=== PATIENT | female | born 1955 | race Caucasian/White ===

== ENCOUNTER 2017-08-19 23:45 | Observation (INO) | payer BC ==
[2017-08-20 00:30] LABS: Hematocrit 37 % (35-47); Hemoglobin 12.2 g/dl (12.0-16.0); Mean Corpuscular HGB Conc 33 g/dl (31-36); Mean Corpuscular Hemoglobin 30 pg (27-31); Mean Corpuscular Volume 91 fL (80-97); Mean Platelet Volume 8 um3 (7.4-10.4); Red Cell Distribution Width 16 % (10.5-15); White Blood Count 7.6 10^3/ul (3.5-10.8)
[2017-08-20 00:46] LABS: Albumin 3.9 g/dL (3.2-5.2); BUN/Creatinine Ratio 12.8 (8-20); Calcium 7.9 mg/dL (8.6-10.3); EGFR African American 95.9 (>60); EGFR Non-African American 74.6 (>60); Globulin 2.1 g/dL (2-4); Total Bilirubin 0.4 mg/dL (0.2-1.0)
[2017-08-20 00:48] LABS: Troponin I 0.01 ng/mL (<0.04)
[2017-08-20 01:24] LABS: Potassium 3.2 mmol/L (3.5-5.0)
--- NOTE | 2017-08-20 02:05 | ED ---
César Pérez Rebecca, scribed for Sravanthi Bowen MD on 08/20/17 at 0014 . HPI Chest Pain - HPI Summary HPI Summary: Pt is a 61 y/o F BIBA who presents to ED c/o CP. Pain began tonight at approximately 2000 while watching tv. Pain is characterized as burning and heaviness, located diffusely throughout the chest with radiation to the back. Pain is not present currently, she was given NTG and morphine [employer] with the morphine relieving pain. Additionally c/o nausea, fatigue and SOB. Denies diaphoresis though EMS report she was diaphoretic. No prior similar episodes. Reports 2 glasses of wine tonight. PMHx asthma and IBS. Last stress test was done 3-5 years ago. - History of Current Complaint Chief Complaint: EDChestPainROMI Time Seen by Provider: 08/19/17 23:51 Hx Obtained From: Patient Onset/Duration: Resolved Time of Onset: 20:00 Initial Severity: Moderate - 4/10 Pain Intensity: 0 Pain Scale Used: 0-10 Numeric Chest Pain Location: Diffuse Chest Pain Radiates: Yes Chest Pain Radiates To:: Back Character: Burning, Heaviness Aggravating Factor(s): Nothing Alleviating Factor(s): Medication Associated Signs and Symptoms: Positive: Nausea - Allergy/Home Medications Allergies/Adverse Reactions: Allergies Allergy/AdvReac Type Severity Reaction Status Date / Time No Known Allergies Allergy Verified 06/10/17 11:19 PMH/Surg Hx/FS Hx/Imm Hx Cardiovascular History: Reports: Hx Hypertension Respiratory History: Reports: Hx Asthma GI History: Reports: Hx Irritable Bowel Musculoskeletal History: Reports: Hx Back Problems Neurological History: Reports: Other Neuro Impairments/Disorders - PAIN CLINIC PT Psychiatric History: Reports: Hx Anxiety, Hx Depression - Surgical History Surgery Procedure, Year, and Place: hysterectomy 1985 [place]. back surgery x3 2006,2009,2013 [place] Infectious Disease History: No Infectious Disease History: Denies: Traveled Outside the [place] in Last 30 Days - Family History Known Family History: Positive: Cardiac Disease - Social History Alcohol Use: Weekly Alcohol Amount: 3-5 drinks/week Substance Use Type: Reports: None Smoking Status (MU): Never Smoked Tobacco Have You Smoked in the Last Year: No Review of Systems Positive: Fatigue, Skin Diaphoresis - Denies though was diaphoretic upon EMS arrival Positive: Chest Pain Positive: Shortness Of Breath Positive: Nausea All Other Systems Reviewed And Are Negative: Yes Physical Exam - Summary Physical Exam Summary: VITAL SIGNS: Reviewed. GENERAL: ~Patient is a well-developed and nourished female who is lying comfortable in the stretcher. Patient is not in any acute respiratory distress. HEAD AND FACE: No signs of trauma. No ecchymosis, hematomas or skull depressions. No sinus tenderness. EYES: PERRLA, EOMI x 2, No injected conjunctiva, no nystagmus. EARS: Hearing grossly intact. Ear canals and tympanic membranes are within normal limits. MOUTH: Oropharynx within normal limits. NECK: Supple, trachea is midline, no adenopathy, no JVD, no carotid bruit, no c- spine tenderness, neck with full ROM. CHEST: Symmetric, no tenderness at palpation LUNGS: Clear to auscultation bilaterally. No wheezing or crackles. CVS: Regular rate and rhythm, S1 and S2 present, no murmurs or gallops appreciated. ABDOMEN: Soft, non-tender. No signs of distention. No rebound no guarding, and no masses palpated. Bowel sounds are normal. EXTREMITIES: FROM in all major joints, no edema, no cyanosis or clubbing. NEURO: Alert and oriented x 3. No acute neurological deficits. Speech is normal and follows commands. SKIN: Dry and warm Triage Information Reviewed: Yes Vital Signs On Initial Exam: Initial Vitals Temp Pulse Resp BP Pulse Ox 97.5 F 84 18 113/59 99 08/19/17 23:50 08/19/17 23:50 08/19/17 23:50 08/19/17 23:50 08/19/17 23:50 Vital Signs Reviewed: Yes Diagnostics - Vital Signs Vital Signs Temp Pulse Resp BP Pulse Ox 08/19/17 23:50 97.5 F 84 18 113/59 99 - Laboratory Result Diagrams: 08/20/17 00:18 08/20/17 00:18 Lab Statement: Any lab studies that have been ordered have been reviewed, and results considered in the medical decision making process. - Radiology CXR Xray Interpretation: No Acute Changes Radiology Interpretation Completed By: ED Physician - EKG 2355 Cardiac Rate: NL EKG Rhythm: Sinus Rhythm EKG Interpretation: 76 bpm, normal axis, normal interval, no acute ischemic changes Re-Evaluation - Re-Evaluation First Eval Re-Evaluation Time: 01:58 Comment: Pain free currently, but explained and discussed admission. Chest Pain Course/Dx - Course Assessment/Plan: Pt is a 61 y/o F BIBA who presents to ED c/o diffuse CP since 1999, characterized as burning and heaviness, with radiation to the back. Pain is not present currently, she was given NTG and morphine [employer] with the morphine relieving pain. Additionally c/o nausea, fatigue and SOB. Denies diaphoresis though EMS report she was diaphoretic. No prior similar episodes. PMHx asthma and IBS. Last stress test was 3-5 years ago. CXR and EKG reveal no acute findings. Discussed care of pt with Dr. Berumen who accepts pt for admission. Pt will be admitted with Dx of CP. She understands and agrees. - Diagnoses Provider Diagnoses: Chest pain - Provider Notifications Discussed Care Of Patient With: Dara Berumen Time Discussed With Above Provider: 02:02 Instructed by Provider To: Other - Accepts pt for admission. Discharge - Discharge Plan Condition: Stable Disposition: ADMITTED TO [facility] Referrals: Fernandez AGUILERA,Peña Olivares [Primary Care Provider] - The documentation as recorded by the César castorena Rebecca accurately reflects the service I personally performed and the decisions made by me, Sravanthi Bowen MD.
[2017-08-20] MEDS ORDERED: HYDROcodone/ACETAMIN 5-325 MG* 1 TAB PO PRN (03:14)
[2017-08-20] MEDS ORDERED: traZODone TAB* 100 MG PO PRN (03:14)
[2017-08-20] MEDS ORDERED: Potassium Chlor TAB* 20 MEQ TAB.ER PO ONE (03:15)
--- NOTE | 2017-08-20 04:41 | HP ---
CC: Peña Presley MD * HISTORY AND PHYSICAL: DATE OF ADMISSION: 08/20/17 PRIMARY CARE PROVIDER: Peña Presley MD CHIEF COMPLAINT: Chest pain. HISTORY OF PRESENT ILLNESS: Ms. Corral is a 61-year-old female with a history of hypertension, asthma, chronic pain, and depression who presented to the emergency room with complaints of chest pain. The patient states over the last few days, the patient has had on and off chest pain. Those episodes last for 10 to 15 minutes at a time. She states that they would come no matter what she was doing. It was not always associated with activity. Today, however, she developed chest pain starting at approximately 1800 in the center of her chest that radiated out to both sides under her breasts. She states that she had some associated nausea. The pain continued and therefore she contacted EMS. When EMS arrived, the patient was found to be diaphoretic. The patient states that the pain lasted until she received morphine. The patient does states that she had stress test approximately 3 years ago at [facility] when she was being worked up for fatigue. The patient has never had any chest pain like this prior. PAST MEDICAL HISTORY: 1. Asthma. 2. Depression. 3. Chronic pain. 4. Hypertension. 5. IBS. PAST SURGICAL HISTORY: 1. Sinus surgery. 2. Hysterectomy. 3. Three back surgeries. MEDICATIONS: 1. Atenolol at unknown dose. 2. Wellbutrin 150 mg p.o. daily. 3. [place] 5/325 mg. 4. Trazodone 150 mg p.o. q.h.s. p.r.n. insomnia. ALLERGIES: No known drug allergies. FAMILY HISTORY: Mom of breast cancer. Dad of coronary artery disease and CVA. SOCIAL HISTORY: The patient is a nonsmoker. She admits drinking at most 1 to 2 alcoholic beverages per day. She is a retired RN. She is . She has 3 children. She indicates that her , Domenico, would be her healthcare proxy. REVIEW OF SYSTEMS: Complete 11-system review of systems is obtained. Pertinent positives and negatives are as per HPI. In addition, the patient states that she has a slight cough. She states that she was diagnosed with bronchitis previously and the cough had been improving, but now is worsening again. Additionally, she complains of diarrhea this evening, but she states that she will get that with her IBS. PHYSICAL EXAMINATION GENERAL: The patient is a well developed, middle-aged female, sleeping in the stretcher, easily awakened to voice, in no acute distress. VITAL SIGNS: Blood pressure 102/59, pulse 75, respirations 16, temperature 97.5 , O2 sat 96% on room air. HEENT: Pupils are equal. They are round. Extraocular muscles are intact. Oropharynx is clear. Oral mucosa is moist. There is no submandibular, cervical , or supraclavicular adenopathy. Thyroid is not enlarged. No thyroid nodules are noted. PULMONARY: Lungs are clear to auscultation bilaterally. CARDIAC: Normal S1, S2. Regular rate and rhythm. I do not appreciate any murmurs. There is no lower extremity edema. ABDOMEN: Bowel sounds are present. Abdomen is soft, nontender, and nondistended. MUSCULOSKELETAL: There is no cyanosis or clubbing of the digits. There is full active range of motion of all 4 extremities. SKIN: Warm and dry. There are no rashes. NEUROLOGIC: Cranial nerves II through XII are grossly intact. Sensation is intact to light touch throughout. Strength is 5/5 and symmetrical in both upper and lower extremities bilaterally. PSYCH: The patient is alert. She is oriented to x3. Affect appears appropriate. LABORATORY DATA: WBC 7.6, hemoglobin 12.2, hematocrit 37, and platelets 245. INR is 0.92. Sodium 140, potassium 3.2, chloride 110, CO2 19, BUN 10, creatinine 0.78, glucose 93, calcium 7.9, bilirubin 0.4, AST 137, ALT 38, alk phos 75, troponin 0.01, albumin 3.9. EKG reveals normal sinus rhythm without any acute ST-T wave abnormalities. Chest x-ray to my interpretation, I questioned a small right basilar infiltrate. We will await formal read by the radiologist. ASSESSMENT AND PLAN: Ms. Corral is a 61-year-old female with a history of hypertension who presents to the emergency room with complaints of chest pain with associated nausea and possible diaphoresis. 1. Chest pain. The patient will be admitted under observation status to rule out an myocardial infarction. The patient will have another troponin obtained now and again at 0600. If she rules out for myocardial infarction, the patient will undergo exercise nuclear stress test. The patient normally takes atenolol ; however, she does not know what her dose is. This will need to be held prior to the stress test regardless. 2. Depression. Continue Wellbutrin 150 mg p.o. daily and trazodone as needed for sleep. 3. Chronic pain. Continue [place] 5/325 one tab every 6 hours as needed for pain. 4. Hypertension. The patient's blood pressure is under excellent control at this point. As above, her atenolol is going to be held. 5. Asthma. There are no symptoms at this time. 6. DVT prophylaxis. According to the Adult Thrombosis Prophylaxis Risk Factor Assessment Guide, the patient has a total risk factor score of 2 making her moderate risk. She will be placed on heparin 5000 units subcutaneous q.12 hours. 7. Code status is full and again, the patient indicates that her is her healthcare proxy. TIME SPENT: 50 minutes were spent admitting this patient. [id number]/[facility] #: [id number] WAY[place]
--- NOTE | 2017-08-20 07:35 | RAD ---
HISTORY: Chest pain COMPARISONS: None VIEWS: 1: frontal portable view of the chest at 12:25 AM FINDINGS: LINES AND TUBES: None. CARDIOMEDIASTINAL SILHOUETTE: The cardiomediastinal silhouette is normal for portable technique. PLEURA: The costophrenic angles are sharp. No pleural abnormalities are noted. LUNG PARENCHYMA: There is hyperinflation. ABDOMEN: The upper abdomen is clear. There is no subphrenic gas. BONES AND SOFT TISSUES: No bone or soft tissue abnormalities are noted. IMPRESSION: HYPERINFLATION. NO ACTIVE CARDIOPULMONARY DISEASE.
[2017-08-20] MEDS ORDERED: Heparin VIAL(*) 5000 UNITS/ML VIAL (FIVE THOUSAND) SUBCUT SCH (09:00)
[2017-08-20] MEDS ORDERED: BuPROPion XL* 150 MG TAB.XL PO SCH (09:00)
--- NOTE | 2017-08-20 15:04 | RAD ---
Edited for charges. INDICATION: Evaluate for ischemia. COMPARISON: There are no prior studies available for comparison. Technique: A single day myocardial perfusion stress study was performed. Initially a resting study was performed. The patient was given an intravenous injection of 10.2 mCi of technetium 99m tetrofosmin and and the heart was imaged in multiple projections. The patient returned later in the day and under the direction of Dr. Marie, the patient was exercised to a peak heart rate of 142 beats per minute which was 90% of the maximum predicted heart rate. Subsequently the patient was given intravenous injection of 25.7 mCi of technetium 99m tetrofosmin and the heart was imaged in multiple projections. Images were reconstructed in the axial, sagittal and coronal planes and in a 3- D format. FINDINGS: There appears to be normal wall motion and myocardial thickening. The left ventricular ejection fraction was calculated to be 74%. No focal abnormalities are seen on the perfusion images. There is no evidence for infarct or ischemia. IMPRESSION: NO EVIDENCE FOR INFARCT OR ISCHEMIA. ASSESSMENT: Low risk. Based on imaging criteria from ACC/AHA 2002 Guideline Update for the Management of Patients With Chronic Stable Angina Table 23. Noninvasive Risk Stratification. MTDD
[2017-08-20 16:58] VITALS: BP 137/72
--- NOTE | 2017-08-21 04:39 | DS ---
CC: Peña Presley MD * DISCHARGE SUMMARY: DATE OF ADMISSION: 08/20/17 DATE OF DISCHARGE: 08/20/17 PRIMARY CARE PROVIDER: Peña Presley MD MY ATTENDING WHILE IN THE HOSPITAL: Dr. Lyudmila Olmos * (DICTATED BY CONOR ESCOBEDO) PRIMARY DISCHARGE DIAGNOSIS: Chest pain. SECONDARY DISCHARGE DIAGNOSES: 1. Anxiety. 2. Chronic pain. 3. Irritable bowel syndrome. 4. Asthma. 5. Hypertension. STUDIES DONE WHILE IN THE HOSPITAL: 1. Electrocardiogram from 08/19/17 shows normal sinus rhythm, no ST segment changes, no hypertrophy or enlargement, normal axis and no other abnormalities. 2. Chest x-ray from 08/20/17 read as hyperinflation, no active cardiopulmonary disease. 3. Nuclear medicine scan from 08/20/17 read as no evidence for acute infarct or ischemia, ejection fraction 74, no wall motion and myocardial thickening. MEDICATIONS AT DISCHARGE: 1. Trazodone 150 mg p.o. at bedtime as needed. 2. [place] 5/325 one tab p.o. q.6 hours as needed. 3. Wellbutrin 150 mg p.o. daily. 4. Atenolol 10 mg p.o. daily. 5. Naproxen 250 mg p.o. q.8 hours as needed. New medications at discharge: None. Medications discontinued at discharge: None. HOSPITAL COURSE: This is a brief summary of patient's presentation. For more details, please see the history and physical from Dr. Dara Berumen on . In brief, the patient is a 61-year-old female with past medical history for the above, who presents with several days of on and off chest pain, the episode is lasting for 10 to 15 minutes with no provoking or palliating factors, radiated up to both sides of her breasts, had some shortness of breath, had some associated nausea and was diaphoretic when EMS saw her. The patient had previous stress test, which was normal. The patient's symptoms resolved with morphine. The patient had no other symptoms. The patient was admitted, had troponins drawn x3, which were normal. The patient had a nuclear medicine scan , which was read as above. The patient had no other symptoms except recurrence of 3/10 chest pain, which resolved with Tylenol administration at approximately 5 a.m. The patient is on telemetry for approximately 12 hours with no abnormalities noted. The patient attributed, states that she felt rather anxious when she had these episodes of chest pain and believes that it was related to her anxiety. The patient was amenable to discharge to home. PHYSICAL EXAMINATION ON THE DAY OF DISCHARGE: General: The patient is a 61- year- old female who appears stated age and sitting comfortably in the bed, in no acute distress. Vital Signs: At the time of discharge, temperature 98.5, pulse rate 70, respiratory rate 20, oxygen saturation 98% on room air, blood pressure 137/72. HEENT: Head: Normocephalic, atraumatic. Sclerae anicteric. No conjunctival injection. Nasal mucosa is moist. No discharge. Oral mucosa moist. Pharynx nonerythematous with no exudates or postnasal drip. Neck: Supple, nontender. No lymphadenopathy. No carotid bruits auscultated. Cardiac : Regular rate and rhythm. No clicks, murmurs, gallops, or rubs. Pulses 2+ in the bilateral dorsalis pedis and posterior tibialis and radial areas. No edema. Respiratory: Clear to auscultation bilaterally. No wheezes, rales, or rhonchi. His abdomen is soft, nontender, and nondistended. Bowel sounds present and normoactive in all 4 quadrants. No hepatosplenomegaly. Genitourinary: No suprapubic tenderness or CVA tenderness. Skin: Clean, dry, and intact. No rash. Neurologic: Cranial nerves II through XII grossly intact. Alert and oriented x3. No focal deficits. Psychiatric: The patient is pleasant and cooperative. LABORATORY DATA: White blood cell count 7.6, hemoglobin 12.2, hematocrit 37, platelet count 245. INR 0.92. APTT 31.4. Sodium 3.2, chloride 110, carbon dioxide 19, anion gap 11, BUN 10, creatinine 0.78, calcium 7.9, AST 137, ALT 38 , alkaline phosphatase 75. Troponin I 0.01 x3. Total protein 6. DISCHARGE PLAN: The patient will be discharged to home. No changes to her medications. The patient should follow up with her primary care provider for greater control of her anxiety. The patient should return to the hospital for new or worsening chest pain associated with diaphoresis, shortness of breath, or other alarming symptoms. The patient should engage in activity as tolerated with no restrictions. The patient should have a heart healthy diet with caffeine okay. TIME SPENT: Approximately 40 minutes were spent on this discharge, 30 of which were spent [id number] with the patient obtaining history and physical and discussing treatment plan. CONOR ESCOBEDO [id number]/[facility] #: [id number] [place]
== END 2017-08-20 16:54 | disposition home or self-care (01) ==
LOC: ED 23:45 → MEDTELE 08-20 02:46
PROVIDERS: ADMIT Hospitalist; ATTEND Internal Medicine
DX: R07.9 Chest pain, unspecified (principal); F41.9 Anxiety disorder, unspecified; G89.29 Other chronic pain; K58.9 Irritable bowel syndrome, unspecified; J45.909 Unspecified asthma, uncomplicated; I10 Essential (primary) hypertension; Z79.899 Other long term (current) drug therapy; F32.9 Major depressive disorder, single episode, unspecified; R06.02 Shortness of breath
CPT/HCPCS: 36415; 71010; 78452; 80053; 84484; 85025; 85610; 85730; 93005; 93017; 99284; A9270-GY; A9502; G0378; J1644